=== PATIENT | male | born 1975 | race Hispanic/Latino ===

== ENCOUNTER 2020-12-26 22:30 | Emergency (ER) | payer OTHER | END 2020-12-27 00:38 | disposition home or self-care (01) | LOC: EDH 22:30 | DX: S63.694A Other sprain of right ring finger, initial encounter (principal); X58.XXXA Exposure to other specified factors, initial encounter; Y93.89 Activity, other specified; Y92.89 Other specified places as the place of occurrence of the external cause; Y99.8 Other external cause status | CPT/HCPCS: 29130; 73140 ==

== ENCOUNTER → 2021-11-09 | Emergency (ER) | payer OTHER ==
[~2021-11-09] VITALS: Ht 167.6 cm; Wt 63.5 kg
[2021-11-09 19:14] VITALS: BP 138/87
== END | disposition left against medical advice (07) ==
LOC: EDH 19:13
DX: R53.1 Weakness (principal); Z20.822 Contact with and (suspected) exposure to COVID-19
CPT/HCPCS: 87635; 87804 ×2; C9803

== ENCOUNTER 2023-03-28 21:27 | Emergency (ER) | payer OTHER ==
[~2023-03-28] VITALS: Ht 167.6 cm; Wt 59.0 kg
[2023-03-28 23:46] LABS: BASOPHILS % (AUTO) 0.2 % (0.0-5.0); EOSINOPHILS % (AUTO) 0.3 % (0.0-8.0); HEMATOCRIT 47.3 % (42-54); LYMPHOCYTES % (AUTO) 5.7 % (21.0-51.0); MEAN CORPUSCULAR HEMOGLOBIN 29.7 pg (27.0-33.0); MEAN CORPUSCULAR HGB CONC 34.2 g/dL (32.0-36.0); MEAN CORPUSCULAR VOLUME 86.8 fL (79-99); MONOCYTES % (AUTO) 4.8 % (3.0-13.0); NEUTROPHILS % (AUTO) 88.1 % (40.0-77.0); PLATELET COUNT (AUTO) 321 K/uL (130-400); RED BLOOD CELL COUNT(AUTO) 5.45 MIL/uL (4.50-6.20); RED CELL DISTRIBUTION WIDTH 12.6 % (11.0-15.5); WHITE BLOOD COUNT (AUTO) 14.7 K/uL (4.8-10.8)
[2023-03-28 23:47] LABS: APPEARANCE,URINE CLOUDY (CLEAR); BILIRUBIN,URINE NEGATIVE (NEGATIVE); COLOR,URINE LIGHT-ORANGE (YELLOW); GLUCOSE, URINE (UA) NEGATIVE (NEGATIVE); KETONES,URINE 10 mg/dL (NEGATIVE); LEUKOCYTE ESTERASE ,URINE NEGATIVE Leu/uL (NEGATIVE); NITRATE,URINE NEGATIVE (NEGATIVE); OCCULT BLOOD,URINE LARGE (NEGATIVE); PH,URINE 6.5 (5.0-8.0); PROTEIN,URINE 30 mg/dL (NEGATIVE); UROBILINOGEN,URINE 0.2 mg/dL (0.2-1.0)
[2023-03-28 23:51] LABS: BACTERIA,URINE RARE /HPF (None Seen); MUCUS,URINE RARE LPF (None Seen); RBC,URINE TNTC /HPF (0-1)
[2023-03-29 00:04] LABS: CREATININE 1.1 mg/dL (0.5-1.5); POTASSIUM 3.2 mmol/L (3.5-5.1)
[2023-03-29 00:08] LABS: ALBUMIN 4.7 g/dL (3.5-5.0)
[2023-03-29] MEDS ORDERED: IOHEXOL 350 MG/ML 100ML INFUS..BTL IV ONE (00:11)
[2023-03-29] MEDS ORDERED: KETO10TA2 PO (00:53)
[2023-03-29 01:03] VITALS: BP 138/81
== END 2023-03-29 01:02 | disposition home or self-care (01) ==
LOC: EDH 21:27
DX: N20.0 Calculus of kidney (principal); Z88.1 Allergy status to other antibiotic agents
CPT/HCPCS: 99285; 74177; 80053; 83690; 85025; 87088; 83605; 81001; 36415; Q9967

== ENCOUNTER 2024-03-06 22:30 | Emergency (ER) | payer OTHER ==
[~2024-03-06 22:30] MED LIST: KETO10TA2 PO
[2024-03-06 23:02] LABS: APPEARANCE,URINE CLEAR (CLEAR); BILIRUBIN,URINE NEGATIVE (NEGATIVE); COLOR,URINE LIGHT-YELLOW (YELLOW); GLUCOSE, URINE (UA) NEGATIVE (NEGATIVE); KETONES,URINE NEGATIVE (NEGATIVE); LEUKOCYTE ESTERASE ,URINE NEGATIVE Leu/uL (NEGATIVE); NITRATE,URINE NEGATIVE (NEGATIVE); OCCULT BLOOD,URINE NEGATIVE (NEGATIVE); PROTEIN,URINE 10 mg/dL (NEGATIVE); UROBILINOGEN,URINE 0.2 mg/dL (0.2-1.0)
[2024-03-06 23:07] LABS: BASOPHILS # (AUTO) 0.05 K/uL (0.00-0.20); BASOPHILS % (AUTO) 0.7 % (0.0-5.0); EOSINOPHILS # (AUTO) 0.28 K/uL (0.00-0.70); EOSINOPHILS % (AUTO) 3.7 % (0.0-8.0); HEMATOCRIT 41.1 % (42-54); IMMATURE GRANULOCYTE ABSOLUTE 0.03 K/uL (0-1); LYMPHOCYTES # (AUTO) 1.8 K/uL (1.0-4.8); LYMPHOCYTES % (AUTO) 24.4 % (21.0-51.0); MEAN CORPUSCULAR HEMOGLOBIN 30.2 pg (27.0-33.0); MEAN CORPUSCULAR HGB CONC 35.8 g/dL (32.0-36.0); MEAN CORPUSCULAR VOLUME 84.4 fL (79-99); MONOCYTES # (AUTO) 0.7 K/uL (0.1-1.0); MONOCYTES % (AUTO) 9.6 % (3.0-13.0); NEUTROPHILS # (AUTO) 4.6 K/uL (1.8-7.7); NEUTROPHILS % (AUTO) 61.2 % (40.0-77.0); PLATELET COUNT (AUTO) 281 K/uL (130-400); RED BLOOD CELL COUNT(AUTO) 4.87 MIL/uL (4.50-6.20); RED CELL DISTRIBUTION WIDTH 12.7 % (11.0-15.5); WHITE BLOOD COUNT (AUTO) 7.5 K/uL (4.8-10.8)
[2024-03-06 23:10] LABS: ADD UA MICROSCOPIC NO
[2024-03-06 23:20] LABS: ALBUMIN 3.8 g/dL (3.5-5.0); BILIRUBIN,TOTAL 0.4 mg/dL (0.2-1.0); CREATININE 1.2 mg/dL (0.5-1.3); MAGNESIUM 2.2 mg/dL (1.80-2.40); POTASSIUM 3.1 mmol/L (3.5-5.1); TOTAL PROTEIN, SERUM 6.8 g/dL (6.0-8.3)
[2024-03-06 23:36] LABS: AMPHET/METH SCREEN,URINE NEGATIVE (NEGATIVE); BARBITURATE SCREEN, URINE NEGATIVE (NEGATIVE); BENZODIAZEPINES SCREEN,URINE NEGATIVE (NEGATIVE); CANNABINOID SCREEN,URINE NEGATIVE (NEGATIVE); COCAINE SCREEN,URINE NEGATIVE (NEGATIVE); OPIATE SCREEN,URINE NEGATIVE (NEGATIVE); PHENCYCLIDINE SCREEN,URINE NEGATIVE (NEGATIVE)
[2024-03-06 23:39] LABS: BACTERIA,URINE None Seen /HPF (None Seen); CALCIUM OXALATE CRYSTALS,UR Few /LPF (None Seen); SQUAMOUS EPITHELIAL CELL,UR None Seen /HPF (0-2); WBC,URINE 0-1 /HPF (0-1)
[2024-03-06 23:52] VITALS: BP 149/99; PULSE 78; RESP 16; O2SAT 98
[2024-03-06] MEDS: POTASSIUM BICARB/CIT AC 25 MEQ TABLET.EFF PO ONE (23:55)
[2024-03-06] MEDS ORDERED: CYCL10TA16 PO (23:58)
[2024-03-06] MEDS ORDERED: IBUP-2070 PO (23:58)
== END 2024-03-07 00:04 | disposition home or self-care (01) ==
LOC: EDH 22:30
DX: M75.42 Impingement syndrome of left shoulder (principal); R20.2 Paresthesia of skin; Z88.1 Allergy status to other antibiotic agents
CPT/HCPCS: 36415; 71045; 80053; 80305; 81001; 81003; 83735; 84484; 85025

== ENCOUNTER 2025-02-06 20:42 | Emergency (ER) | payer SELFPAY ==
[~2025-02-06] VITALS: Ht 167.6 cm; Wt 69.4 kg
[~2025-02-06 20:42] MED LIST changes: +CYCL10TA16 PO; +IBUP-2070 PO
--- NOTE | 2025-02-06 20:50 | NUR ---
UA CUP PROVIDED
--- NOTE | 2025-02-06 21:15 | ERN ---
ED Note History of Present Illness Stated Complaint: DIZZINESS, WEAK Chief Complaint: Dizzy/Light Headed Time Seen by MD: 20:49 Dictation: Patient is a 49-year-old here with his mother with complaints of having generalized weakness and some dizziness for he has had for several years. States he has no chest pain no back pain no headache at this time NIH is 0. States he has doctor is located at [facility] and was seen by them last year and told that high cholesterol but never started the medications. Speech is clear he works at a local [employer]. And has been driving with no problems issued Allergies: Coded Allergies: ceftriaxone (Unverified Allergy, Unknown, 11/09/21) Home Meds Active Scripts Cyclobenzaprine HCl (Flexeril) 10 Mg Tab, 10 MG PO TID, #9 TAB Prov:GIBRAN COSTA V WASHCOAT WIPER 03/06/24 Ibuprofen (Ibuprofen) 600 Mg Tablet, 600 MG PO Q6H PRN for PAIN, #30 TAB Prov:GIBRAN COSTA V WASHCOAT WIPER 03/06/24 Ketorolac Tromethamine (Ketorolac Tromethamine) 10 Mg Tablet, 10 MG PO Q6HPRN PRN for PAIN for 4 Days, #16 TAB Prov:SHERI TAPIA GED PREPARATION TEACHER 03/29/23 Past Medical History Past Medical History: Asthma Surgical History: None RN Note Reviewed/Agreed w/PFSH: Yes Review of System Dictation CONSTITUTIONAL: NEGATIVE EXCEPT FOR HPI HEAD/FACE: NEGATIVE EXCEPT FOR HPI EENT: NEGATIVE EXCEPT FOR HPI RESPIRATORY: NEGATIVE EXCEPT FOR HPI GASTROINTESTINAL/ABDOMINAL: NEGATIVE EXCEPT FOR HPI GENITOURINARY: NEGATIVE EXCEPT FOR HPI MUSCULOSKELETAL: NEGATIVE EXCEPT FOR HPI INTEGUMENTARY: NEGATIVE EXCEPT FOR HPI NEUROLOGICAL/PSYCH: NEGATIVE EXCEPT FOR HPI DIZZINESS HEMATOLOGIC/LYMPHATIC: NEGATIVE EXCEPT FOR HPI ALL SYSTEMS NEGATIVE, EXCEPT NOTED ABOVE. 13 POINT REVIEW OF SYSTEMS ASSESSED AND ALL NEGATIVE EXCEPT FOR ABOVE. Initial Vital Sign VS Vital Signs Date Time Temp Pulse Resp B/P (MAP) Pulse Ox O2 Delivery O2 Flow Rate FiO2 02/06/25 20:44 97.5 81 16 155/91 98 Room Air Physical Exam Dictation VITAL SIGNS REVIEWED GENERAL APPEARANCE: ALERT, ORIENTED X 3, NO ACUTE DISTRESS, WELL DEVELOPED, NOURISHED. HEAD AND FACE: NON-TRAUMATIC. EYES: PERRL, PINK CONJUNCTIVAS, EYELID NO TRAUMA, ANTERIOR CHAMBER WITH ARCUS SENILIS. NO NYSTAGMUS EARS: PINNAS INTACT AND NO SIGNS OF TRAUMA OR ERYTHEMA EAR CANALS CLEAR AND NO DISCHARGE TM NO ERYTHEMA NOSE: NO DISCHARGE, NO BLEEDING. OROPHARYNX: MOUTH NORMAL, TONGUE PINK, PHARYNX CLEAR,NO ERYTHEMA, TONSILS NO EXUDATES, NO ABSCESSES NOTED, MUCOUS MEMBRANE MOIST NECK: SUPPLE, NON-TENDER, NO THYROMEGALY, NO MASSES, NO JVD, NO BRUITS BREAST:DEFERRED CHEST:NO TENDERNESS, NO CREPITUS, NO PARADOXICAL MOVEMENT, NO RETRACTIONS LUNGS:CLEAR, WELL-VENTILATED, SYMMETRIC, NO RALES, NO WHEEZING, NO RHONCHI, NO STRIDOR, GOOD BREATH SOUNDS BILATERALLY HEART: REGULAR RATE, REGULAR RHYTHM, NO MURMUR, NO GALLOPS VASCULAR: NO PERIPHERAL EDEMA, ABDOMEN: SOFT, POSITIVE BOWEL SOUNDS, NONDISTENDED, NO GUARDING, NONTENDER, NO REBOUND, NO MASSES NO HEPATOMEGALY, NO SPLENOMEGALY, NO FISHER'S SIGN, NO HERNIAS. RECTAL: DEFERRED GENITAL: DEFERRED NEUROLOGICAL: NORMAL SPEECH, MOTOR FUNCTION INTACT, SENSORY FUNCTION INTACT NIH IS 0 MUSCULOSKELETAL: NECK NONTENDER, FULL RANGE OF MOTION, BACK NONTENDER, FULL RA NGE OF MOTION, EXTREMITIES: NONTENDER, FULL RANGE OF MOTION SKIN: COLOR PINK, DRY, NO TURGOR, NO RASH, NO LACERATIONS, NO ABRASIONS, NO CONTUSIONS. LYMPHATIC: DEFERRED Results (Laboratory/Radiology) Laboratory/Radiology Laboratory Tests Test 02/06/25 21:21 White Blood Count 6.3 K/uL (4.8-10.8) Red Blood Count 5.18 MIL/uL (4.50-6.20) Hemoglobin 15.6 g/dL (14.0-18.0) Hematocrit 45.3 % (42-54) Mean Corpuscular Volume 87.5 fL (79-99) Mean Corpuscular Hemoglobin 30.1 pg (27.0-33.0) Mean Corpuscular Hemoglobin Concent 34.4 g/dL (32.0-36.0) Red Cell Distribution Width 12.9 % (11.0-15.5) Platelet Count 295 K/uL (130-400) Mean Platelet Volume 10.0 fL (7.5-10.5) Immature Granulocyte % (Auto) 0.5 % (0-1) Neutrophils (%) (Auto) 64.9 % (40.0-77.0) Lymphocytes (%) (Auto) 22.9 % (21.0-51.0) Monocytes (%) (Auto) 9.0 % (3.0-13.0) Eosinophils (%) (Auto) 2.2 % (0.0-8.0) Basophils (%) (Auto) 0.5 % (0.0-5.0) Neutrophils # (Auto) 4.1 K/uL (1.8-7.7) Lymphocytes # (Auto) 1.4 K/uL (1.0-4.8) Monocytes # (Auto) 0.6 K/uL (0.1-1.0) Eosinophils # (Auto) 0.14 K/uL (0.00-0.70) Basophils # (Auto) 0.03 K/uL (0.00-0.20) Absolute Immature Granulocyte (auto 0.03 K/uL (0-1) Nucleated Red Blood Cells 0.0 % (0.0-0.19) Sodium Level 145 mmol/L (136-145) Potassium Level 3.4 mmol/L (3.5-5.1) L Chloride Level 108 mmol/L (101-111) Carbon Dioxide Level 28 mmol/L (21-32) Blood Urea Nitrogen 12 mg/dL (7-18) Creatinine 1.1 mg/dL (0.5-1.3) Glomerular Filtration Rate Calc 83 mL/min (>90) Random Glucose 105 mg/dL (70-105) Total Calcium 9.8 mg/dL (8.5-10.1) Troponin I High Sensitivity 5 ng/L (4-75) Labs Reviewed?: Yes EKG: (+) NSR EKG Comment: EKG NORMAL SINUS RHYTHM/HEART RATE 69/AXIS NORMAL/NO ECTOPY ED Course ED Course Orders Procedure Category Date Status Time Cbc With Differential LAB 02/06/25 Complete 21:14 Troponin I High LAB 02/06/25 Complete Sensitivity 21:14 12 Lead Ekg Tracing- EKG 02/06/25 Complete Technical 21:14 Basic Metabolic Panel LAB 02/06/25 Complete 21:14 Vital Signs Date Time Temp Pulse Resp B/P (MAP) Pulse Ox O2 Delivery O2 Flow Rate FiO2 02/06/25 20:44 97.5 81 16 155/91 98 Room Air 2240/PATIENT IS NEUROLOGICALLY INTACT NIH IS 0. HE WILL BE GIVEN POTASSIUM FOUR MILD HYPOKALEMIA. DISCHARGED HOME WITH MECLIZINE TO SEE HIS DOCTOR AT [facility] FOR NEUROLOGY REFERRAL FOR CHRONIC DIZZINESS MOTHER AT BEDSIDE HEART Score Response (Comments) Value History: Low suspicion (0) 0 Age: 45-65yrs (+1) 1 Risk Factors: No known risk factors (0) 0 Initial Troponin: Normal limit (0) 0 Total 1 Medical Decision Making MDM MEDICAL DISCHARGE MAKING BASED ON EKG AND BASIC LABS. ALL LABS UNREMARKABLE EXCEPT FOR MILD HYPOKALEMIA, POTASSIUM WE WILL BE REPLACED EKG NORMAL SINUS RHYTHM NIH IS 0 DISCHARGED HOME TO FOLLOW UP WITH HIS PRIMARY CARE DOCTOR FOR REFERRAL TO NEUROLOGY PRESCRIBED MECLIZINE DX & DISP Disposition: Discharge Departure Impression: Primary Impression: Dizziness Additional Impressions: Hypokalemia, Anxiety Condition: Stable Scripts Meclizine HCl (Meclizine HCl) 25 Mg Tablet 25 MG PO TID for vertigo, #30 TAB 0 Refills Prov: NEVIN PERALTA NP 02/06/25 Additional Instructions: FOLLOW-UP WITH PRIMARY CARE PROVIDER IN 1 TO 2 DAYS. TAKE MEDICATIONS DIRECTED HERE IN THE EMERGENCY ROOM. OKAY TO CONTINUE HOME MEDICATIONS UNLESS OTHERWISE DISCUSSED DURING YOUR VISIT IN THE EMERGENCY ROOM TODAY. RETURN TO YOUR NEAREST EMERGENCY ROOM IF SYMPTOMS WORSEN OR IF THERE IS NO IMPROVEMENT. CALL 911 IF YOU NEED IMMEDIATE ASSISTANCE. TAKE TYLENOL OR MOTRIN [id number] NEEDED AND IF NO CONTRAINDICATIONS ARE PRESENT. INCREASE OR AL HYDRATION. A WOUND CULTURE OR URINE CULTURE WAS ORDERED HERE IN THE EMERGENCY ROOM DEPARTMENT PLEASE FOLLOW-UP WITH PRIMARY CARE PROVIDER AND ADVISE THEM TO GET REPEAT PORTS FROM OUR FACILITY. IF YOU HAD ANY DEVI WRAP/SPLINTS THAT WERE APPLIED HERE, PLEASE DO NOT REMOVE THEM UNTIL YOU SEE YOUR PRIMARY CARE OR SPECIALTY. TAKE MECLIZINE DIRECTED FOR DIZZINESS. SEE YOUR PRIMARY CARE DOCTOR AT [facility] ON SUNDAY FOR REFERRAL TO NEUROLOGY FOR YOUR CHRONIC DIZZINESS. Referrals: SELF,REFERRAL (PCP) Time of Disposition: 22:42 I have reviewed the case, and I agree with, Diagnosis and Plan NEVIN PERALTA NP Feb 06, 2025 21:15
[2025-02-06 21:33] LABS: BASOPHILS # (AUTO) 0.03 K/uL (0.00-0.20); BASOPHILS % (AUTO) 0.5 % (0.0-5.0); EOSINOPHILS # (AUTO) 0.14 K/uL (0.00-0.70); EOSINOPHILS % (AUTO) 2.2 % (0.0-8.0); HEMATOCRIT 45.3 % (42-54); IMMATURE GRANULOCYTE ABSOLUTE 0.03 K/uL (0-1); LYMPHOCYTES # (AUTO) 1.4 K/uL (1.0-4.8); LYMPHOCYTES % (AUTO) 22.9 % (21.0-51.0); MEAN CORPUSCULAR HEMOGLOBIN 30.1 pg (27.0-33.0); MEAN CORPUSCULAR HGB CONC 34.4 g/dL (32.0-36.0); MEAN CORPUSCULAR VOLUME 87.5 fL (79-99); MONOCYTES # (AUTO) 0.6 K/uL (0.1-1.0); NEUTROPHILS # (AUTO) 4.1 K/uL (1.8-7.7); NEUTROPHILS % (AUTO) 64.9 % (40.0-77.0); PLATELET COUNT (AUTO) 295 K/uL (130-400); RED BLOOD CELL COUNT(AUTO) 5.18 MIL/uL (4.50-6.20); RED CELL DISTRIBUTION WIDTH 12.9 % (11.0-15.5); WHITE BLOOD COUNT (AUTO) 6.3 K/uL (4.8-10.8)
--- NOTE | 2025-02-06 21:35 | EKG ---
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
[2025-02-06 21:46] LABS: CREATININE 1.1 mg/dL (0.5-1.3); POTASSIUM 3.4 mmol/L (3.5-5.1)
[2025-02-06] MEDS ORDERED: MECL-302 PO (22:43)
[2025-02-06 22:55] VITALS: BP 161/58; PULSE 62; RESP 16; TEMP 97.3; O2SAT 100
[2025-02-06] MEDS: PoTASSium BIcarbonate/CIT AC 25 MEQ TABLET.EFF PO ONE (23:01)
== END 2025-02-06 23:09 | disposition home or self-care (01) ==
LOC: EDH 20:42
DX: R42 Dizziness and giddiness (principal); E87.6 Hypokalemia; F41.9 Anxiety disorder, unspecified; J45.909 Unspecified asthma, uncomplicated; Z79.899 Other long term (current) drug therapy; Z88.1 Allergy status to other antibiotic agents
CPT/HCPCS: 36415; 80048; 84484; 85025; 93005; 99284

== ENCOUNTER 2025-06-13 23:18 | Emergency (ER) | payer OTHER ==
[~2025-06-13] VITALS: Ht 162.6 cm; Wt 65.8 kg
[~2025-06-13 23:18] MED LIST changes: +IBUP-1492 PO; -IBUP-2070 PO; +MECL-302 PO
--- NOTE | 2025-06-13 23:20 | NUR ---
COVID, FLU AND STREP SWABS COLLECTED AND SENT
[2025-06-13 23:41] LABS: RAPID GROUP A STREP negative (NEGATIVE)
[2025-06-13 23:47] LABS: INFLUENZA TYPE A Negative For Type A (NEGATIVE); INFLUENZA TYPE B Negative For Type B (NEGATIVE)
[2025-06-13 23:48] LABS: SARS-CoV-2, RNA, NAAT POSITIVE SARS CoV-2 (NEGATIVE)
--- NOTE | 2025-06-14 01:59 | NUR ---
PT CALLED, NO IN LOBBY
--- NOTE | 2025-06-14 02:23 | NUR ---
PT LOCATED IN LOBBY AT THIS TIME
--- NOTE | 2025-06-14 02:32 | NUR ---
PT CALLED, NOT IN LOBBY OR RESTROOM, NOT IN MAIN LOBBY
--- NOTE | 2025-06-14 02:35 | NUR ---
PT BACK IN LOBBY FROM OUTSIDE
--- NOTE | 2025-06-14 02:40 | NUR ---
REPORT TO AYAKA RN
[2025-06-14] MEDS ORDERED: METH4TAB3 PO (03:38)
[2025-06-14] MEDS ORDERED: AZIT250T9 PO (03:38)
--- NOTE | 2025-06-14 03:39 | ERN ---
General Chief Complaint: Cough Stated Complaint: COUGH. + COVID TEST Time Seen by MD: 23:48 Time Seen by Midlevel: 23:48 Source: patient History of Present Illness Initial Comments Patient is a 49-year-old male presenting to the emergency department for flu- like symptoms. Patient tested positive for COVID prior to arrival and decided to come in for further evaluation. Symptoms consist of generalized body weakness and a dry productive cough. Denies any other symptoms Allergies: Coded Allergies: ceftriaxone (Unverified Allergy, Unknown, 11/09/21) Home Meds Active Scripts Methylprednisolone (Medrol) 4 Mg Tab.ds.pk, 1 TAB PO AD for 6 Days, #21 TAB 0 Refills 6 on day 1 then reduce by one tablet daily until gone Prov:OLIVA NINA 06/14/25 Azithromycin (Azithromycin) 250 Mg Tablet, 1 TAB PO AD for 5 Days, #6 TAB 0 Refills 2 the first day followed by 1 for days 2-5 Prov:OLIVA NINA 06/14/25 Meclizine HCl (Meclizine HCl) 25 Mg Tablet, 25 MG PO TID for vertigo, #30 TAB 0 Refills Prov:NEVIN PERALTA THERAPY ASSISTANT 02/06/25 Cyclobenzaprine HCl (Flexeril) 10 Mg Tab, 10 MG PO TID, #9 TAB Prov:GIBRAN COSTA V FIRE ADJUSTER 03/06/24 Ibuprofen (Ibuprofen) 600 Mg Tablet, 600 MG PO Q6H PRN for PAIN, #30 TAB Prov:GIBRAN COSTAP 03/06/24 Ketorolac Tromethamine (Ketorolac Tromethamine) 10 Mg Tablet, 10 MG PO Q6HPRN PRN for PAIN for 4 Days, #16 TAB Prov:SHERI TAPIA THERAPY ASSISTANT 03/29/23 Past Medical History Past Medical History: Asthma Past Surgical History: None ROS Dictation CONSTITUTIONAL: Negative except for HPI HEAD/FACE: Negative except for HPI EENT: Negative except for HPI RESPIRATORY: Negative except for HPI GASTROINTESTINAL/ABDOMINAL: Negative except for HPI GENITOURINARY: Negative except for HPI MUSCULOSKELETAL: Negative except for HPI INTEGUMENTARY: Negative except for HPI NEUROLOGICAL/PSYCH: Negative except for HPI HEMATOLOGIC/LYMPHATIC: Negative except for HPI All Systems Negative, Except as noted above. 13 point review of systems assessed and all negative except for above. Physical Exam Physical Exam Dictation Vital Signs reviewed General Appearance: Alert, oriented x 3, no acute distress, well developed, nourished. Head and Face: non-traumatic. Eyes: PERRL, pink conjunctivas, eyelid no trauma, anterior chamber with arcus senilis. Ears: Pinnas intact and no signs of trauma or erythema ear canals clear and no discharge TM no erythema Nose: No discharge, no bleeding. Oropharynx: Mouth normal, tongue pink, pharynx clear,no erythema, tonsils no exudates, no abscesses noted, mucous membrane moist Neck: Supple, non-tender, no thyromegaly, no masses, no JVD, no bruits Breast:Deferred Chest:No tenderness, no crepitus, no paradoxical movement, no retractions Lungs:Clear, well-ventilated, symmetric, no rales, no wheezing, no rhonchi, no stridor, good breath sounds bilaterally Heart: Regular rate, regular rhythm, no murmur, no gallops Vascular: no peripheral edema, Abdomen: Soft, positive bowel sounds, nondistended, no guarding, nontender, no rebound, no masses no hepatomegaly, no splenomegaly, no Funez's sign, no hernias. Rectal: Deferred Genital: Deferred Neurological: Normal speech, motor function intact, sensory function intact Musculoskeletal: Neck nontender, full range of motion, back nontender, full range of motion, Extremities: nontender, full range of motion Skin: Color pink, dry, no turgor, no rash, no lacerations, no abrasions, no contusions. Lymphatic: Deferred Results Laboratory and Microbiology Lab and Micro Result Laboratory Tests Test 06/13/25 23:20 Influenza Type A Antigen Negative For Type A Influenza Type B Antigen Negative For Type B SARS-CoV-2, RNA, NAAT POSITIVE SARS CoV-2 Group A Streptococcus Rapid negative (NEGATIVE) Labs Reviewed?: Yes MDM MDM: Differential diagnosis: Viral syndrome, upper respiratory infection, There are no social concerns with this patient. Prescription drug management Prescriptions will include: Medrol pack, azithromycin Medical management and examination interpretation discussions were had by me with other qualified healthcare professionals as indicated for the patient's care. ED Course Orders Procedure Category Date Status Time Covid Rna Naat LAB 06/13/25 Complete 23:20 Influenza Type A & B, LAB 06/13/25 Complete Rapid 23:20 Rapid (Group A Strep) LAB 06/13/25 Complete 23:20 Ipratropium/Albuterol PHA 06/14/25 Complete Neb (Duoneb) 04:00 Dexamethasone 4mg/Ml PHA 06/14/25 Complete 1ml Vial (Dexametha 04:00 Current Medications Medications (Trade) Dose Ordered Sig/Chidi Route PRN Reason Start Time Stop Time Status Last Admin Dose Admin Albuterol (DUOneb) 1 UDVIAL ONCE ONCE IH 06/14/25 04:00 06/14/25 04:01 DC 06/14/25 04:03 Dexamethasone Sodium Phosphate (dexaMETHasone 4MG/ML 1ML VIAL) 6 mg ONCE ONCE IM 06/14/25 04:00 06/14/25 04:01 DC 06/14/25 04:11 Vital Signs Date Time Temp Pulse Resp B/P (MAP) Pulse Ox O2 Delivery O2 Flow Rate FiO2 06/14/25 04:03 94 18 06/14/25 04:00 97.7 88 20 141/97 99 Room Air* 0 21 06/14/25 02:22 97.0 90 20 150/92 99 Room Air* 0 21 06/13/25 23:19 98.8 90 20 140/85 96 Room Air DX & DISP Disposition: Discharge Departure Impression: Primary Impression: COVID-19 Condition: Stable Scripts Methylprednisolone (Medrol) 4 Mg Tab.ds.pk 1 TAB PO AD for 6 Days, #21 TAB 0 Refills 6 on day 1 then reduce by one tablet daily until gone Prov: OLIVA NINA 06/14/25 Azithromycin (Azithromycin) 250 Mg Tablet 1 TAB PO AD for 5 Days, #6 TAB 0 Refills 2 the first day followed by 1 for days 2-5 Prov: OLIVA NINA 06/14/25 Referrals: NONE (PCP) I have reviewed the case, and I agree with, Diagnosis and Plan I performed the substantive portion of the visit. I have reviewed and personally made and approve the management plan that is documented in the note by myself or the YOJANA. I acknowledge for responsibility for the patient's management plan. OLIVA NINA Jun 14, 2025 03:39
[2025-06-14 04:00] VITALS: BP 141/97; TEMP 97.7; O2SAT 99
[2025-06-14 04:03] VITALS: PULSE 94; RESP 18
== END 2025-06-14 04:20 | disposition home or self-care (01) ==
LOC: EDH 23:18
DX: U07.1 COVID-19 (principal); J45.909 Unspecified asthma, uncomplicated; Z88.1 Allergy status to other antibiotic agents
CPT/HCPCS: 99283; 87635; 87880; 87804 ×2; 96372; 94640; J1100